=== PATIENT | male | born 1975 | race Hispanic/Latino ===

== ENCOUNTER 2020-01-18 23:48 | Emergency (ER) | payer OTHER ==
[~2020-01-18] VITALS: Ht 180.3 cm; Wt 102.1 kg
[2020-01-19] MEDS ORDERED: ACETAMINOPHEN 325 MG TAB PO ONE (00:15)
[2020-01-19] MEDS ORDERED: SODIUM CHLORIDE 0.9% 1000ML 1,000 ML IV STA (00:36)
[2020-01-19 00:55] LABS: INFLUENZAE A&B ANTIGEN (RAPID) NEGATIVE (NEGATIVE); STREPTOCOCCUS GRP A ANTIGEN NEGATIVE (NEGATIVE)
--- NOTE | 2020-01-19 01:03 | Diagnostic Imaging Report ---
EXAMINATION: PA and lateral views of the chest. COMPARISON: None CLINICAL HISTORY: Cough DISCUSSION: The lungs are well inflated. No focal airspace consolidation, pleural effusion, or pneumothorax. Calcified granuloma in the left midlung. Heart size is normal. Atherosclerotic calcification of the thoracic aorta. Convexity of the left paraspinal region of the mediastinum likely represents a hiatal hernia. No acute osseous abnormalities. IMPRESSION: No acute cardiopulmonary abnormalities. Left paraspinal mediastinal convexity likely represents a hiatal hernia. In the absence of prior radiographs for comparison, outpatient fluoroscopic upper GI series or short-term follow-up chest radiograph may be obtained. Signed by: Dr. John Reece M.D. on 01/19/2020 1:00 AM
[2020-01-19 01:53] LABS: BASOPHILS % 0.4 % (0.0-1.0); EOSINOPHILS # (AUTO) 0.2 (0.0-0.4); EOSINOPHILS % 2.1 % (0.0-6.0); HEMATOCRIT 44.4 % (38.2-49.6); HEMOGLOBIN 15.3 g/dL (14.0-18.0); LYMPHOCYTES # (AUTO) 0.6 (1.0-3.2); LYMPHOCYTES % 6.1 % (18.0-39.1); MEAN CORPUSCULAR HGB CONC 34.5 g/dL (31-35); MEAN CORPUSCULAR VOLUME 92.9 fL (81-99); MONOCYTES % 9.6 % (4.4-11.3); NEUTROPHILS # (AUTO) 8.3 (2.1-6.9); NEUTROPHILS % 81.3 % (38.7-80.0); PLATELET COUNT 232 x10e3/uL (140-360); RED BLOOD COUNT 4.78 x10e6/uL (4.3-5.7); RED CELL DISTRIBUTION WIDTH 12.7 % (11.7-14.4)
[2020-01-19 02:04] LABS: BILIRUBIN,URINE NEGATIVE (NEGATIVE); CLARITY,URINE CLEAR (CLEAR); COLOR,URINE YELLOW (YELLOW); KETONES,URINE NEGATIVE (NEGATIVE); LEUKOCYTE ESTERASE ,URINE NEGATIVE (NEGATIVE); NITRITE,URINE NEGATIVE (NEGATIVE); PROTEIN,URINE DIPSTICK NEGATIVE (NEGATIVE); URINE UROBILINOGEN 0.2 mg/dL (0.2 - 1)
[2020-01-19 02:14] LABS: ALANINE AMINOTRANSFERASE 99 IU/L (0-55); ALBUMIN/GLOBULIN RATIO 1.2 (0.8-2.0); ALKALINE PHOSPHATASE 75 IU/L (40-150); ANION GAP 13.7 mmol/L (8-16); BLOOD UREA NITROGEN 10 mg/dL (7-26); BUN/CREATININE RATIO 11 (6-25); CALCIUM 8.9 mg/dL (8.4-10.2); CARBON DIOXIDE 23 mmol/L (22-29); CHLORIDE 100 mmol/L (98-107); CREATININE, SERUM 0.87 mg/dL (0.72-1.25); EST GLOMERULAR FILTRATION RATE > 60 ML/MIN (60-); GLUCOSE 110 mg/dL (74-118); POTASSIUM 3.7 mmol/L (3.5-5.1); SODIUM 133 mmol/L (136-145)
[2020-01-19 02:14] LABS: BACTERIA,URINE RARE /HPF; EPITHELIAL CELLS,URINE FEW /LPF; RBC,URINE 0-5 /HPF (0-5); WBC,URINE (MAN) 0-5 /HPF (0-5)
[2020-01-19 02:52] VITALS: BP 160/106
== END 2020-01-19 02:56 | disposition home or self-care (01) ==
LOC: ER 23:48
DX: R50.9 Fever, unspecified (principal); R05 Cough; B34.9 Viral infection, unspecified
CPT/HCPCS: 36415; 71046; 80053; 81001; 83518; 83605; 85025; 87070; 87400; 99284; J7030

== ENCOUNTER 2024-05-24 17:46 | Emergency (ER) | payer OTHER ==
[~2024-05-24] VITALS: Ht 180.3 cm; Wt 102.1 kg
[2024-05-24 18:32] LABS: BASOPHILS # (AUTO) 0.1 (0.0-0.1); BASOPHILS % 0.6 % (0.0-1.0); EOSINOPHILS # (AUTO) 0.4 (0.0-0.4); EOSINOPHILS % 3.5 % (0.0-6.0); HEMATOCRIT 44.2 % (38.2-49.6); HEMOGLOBIN 15.4 g/dL (14.0-18.0); LYMPHOCYTES % 18.8 % (18.0-39.1); MEAN CORPUSCULAR HEMOGLOBIN 32.2 pg (28-32); MEAN CORPUSCULAR HGB CONC 34.8 g/dL (31-35); MEAN CORPUSCULAR VOLUME 92.5 fL (81-99); MONOCYTES % 9.7 % (4.4-11.3); NEUTROPHILS # (AUTO) 7.2 (2.1-6.9); NEUTROPHILS % 67.1 % (38.7-80.0); PLATELET COUNT 268 x10e3/uL (140-360); RED BLOOD COUNT 4.78 x10e6/uL (4.3-5.7); WHITE BLOOD COUNT 10.74 x10e3/uL (4.8-10.8)
[2024-05-24 18:49] LABS: ALANINE AMINOTRANSFERASE 28 IU/L (0-55); ALBUMIN 3.7 g/dL (3.5-5.0); ALKALINE PHOSPHATASE 75 IU/L (40-150); ANION GAP 13.5 mmol/L (8-16); BILIRUBIN,TOTAL 0.8 mg/dL (0.2-1.2); BLOOD UREA NITROGEN 9 mg/dL (7-26); BUN/CREATININE RATIO 8 (6-25); CALCIUM 9.2 mg/dL (8.4-10.2); CARBON DIOXIDE 24 mmol/L (22-29); CHLORIDE 103 mmol/L (98-107); CREATINE KINASE 114 IU/L (30-200); CREATININE, SERUM 1.08 mg/dL (0.72-1.25); EST GLOMERULAR FILTRATION RATE 85 ML/MIN (>=60); GLUCOSE 135 mg/dL (74-118); POTASSIUM 3.5 mmol/L (3.5-5.1); SODIUM 137 mmol/L (136-145); TOTAL PROTEIN 7.4 g/dL (6.5-8.1)
[2024-05-24 18:57] LABS: TROPONIN I < 0.001 ng/mL (0-0.300)
[2024-05-24 19:08] VITALS: PULSE 83; RESP 19; TEMP 98.3
[2024-05-24] MEDS: SODIUM CHLORIDE 0.9% 1000ML 1,000 ML IV STA (19:13)
[2024-05-24] MEDS: HYDRALAZINE HCL 20 MG/ML VIAL IV STA (20:52)
[2024-05-24 21:22] VITALS: BP 158/97; PULSE 85; RESP 19; TEMP 98.5; O2SAT 98
== END 2024-05-24 21:29 | disposition home or self-care (01) ==
LOC: ER 18:02
DX: I16.0 Hypertensive urgency (principal); Z91.148 Patient's other noncompliance with medication regimen for other reason; R51.9 Headache, unspecified; K44.9 Diaphragmatic hernia without obstruction or gangrene; R06.02 Shortness of breath; Z11.52 Encounter for screening for COVID-19
CPT/HCPCS: 36415; 70450; 71045; 80053; 82550; 83690; 83880; 84484; 85025; 93005; 99284; J0360; J7030; U0002

== ENCOUNTER 2024-05-25 01:19 | Emergency (ER) | payer OTHER ==
[~2024-05-25] VITALS: Ht 180.3 cm; Wt 116.1 kg
[2024-05-25] MEDS: ASPIRIN 325 MG TAB PO STA (02:04)
[2024-05-25 02:07] VITALS: PULSE 82; RESP 19; TEMP 98.5
[2024-05-25 02:17] LABS: CREATINE KINASE 102 IU/L (30-200)
[2024-05-25 02:23] LABS: TROPONIN I < 0.001 ng/mL (0-0.300)
[2024-05-25] MEDS ORDERED: IOPAMIDOL 370 MG/ML 100 ML INFUS..BTL INJ ONE (02:49)
[2024-05-25] MEDS: FAMOTIDINE 20 MG/2 ML VIAL IV STA (03:06)
[2024-05-25] MEDS ORDERED: FAMOTIDINE 20 MG/2 ML VIAL IV ONE (03:08)
[2024-05-25 04:19] VITALS: BP 167/105; PULSE 69; RESP 17; TEMP 98; O2SAT 100
== END 2024-05-25 04:22 | disposition home or self-care (01) ==
LOC: ER 01:22
DX: R07.9 Chest pain, unspecified (principal); I10 Essential (primary) hypertension
CPT/HCPCS: 36415; 71260; 82550; 84484; 93005; 99284; Q9967

== ENCOUNTER 2025-07-11 20:14 | Observation (INO) | payer OTHER ==
[~2025-07-11] VITALS: Ht 180.3 cm; Wt 104.3 kg
[2025-07-11 20:32] LABS: BASOPHILS % 0.5 % (0.0-1.0); EOSINOPHILS % 3.8 % (0.0-6.0); LYMPHOCYTES % 17.1 % (18.0-39.1); MONOCYTES % 8.0 % (4.4-11.3); NEUTROPHILS % 70.1 % (38.7-80.0); RED CELL DISTRIBUTION WIDTH 13.5 % (11.7-14.4)
[2025-07-11 20:55] LABS: EST GLOMERULAR FILTRATION RATE 87.0 ML/MIN (>=60)
[2025-07-11 22:15] VITALS: PULSE 90; RESP 20; O2SAT 98
[2025-07-11] MEDS ORDERED: Morphine 4mg INJECTION 4 MG/ML INJ IV PRN (22:15)
[2025-07-11] MEDS ORDERED: ONDANSETRON HCL INJ 2MG/ML 2ML 2 MG/ML VIAL IV PRN (22:15)
[2025-07-11 22:22] VITALS: PULSE 91; RESP 18; TEMP 98.3
[2025-07-11] MEDS: ASPIRIN 325 MG TAB PO ONE (22:22)
[2025-07-11] MEDS: CLOPIDOGREL BISULFATE 75 MG TAB PO ONE (22:22)
[2025-07-11 22:50] VITALS: BP 175/107; PULSE 80; RESP 20; TEMP 98.5; O2SAT 100
[2025-07-11] MEDS ORDERED: AMLODIPINE BESYL5 MG PO (23:42)
[2025-07-11] MEDS ORDERED: TRIAMTERENE-HCTZ1 EA PO (23:42)
[2025-07-11] MEDS ORDERED: METFORMIN HCL500 MG PO (23:42)
[2025-07-12] VITALS (8 sets, daily range): BP systolic 134–175; BP diastolic 82–107; PULSE 66–98; RESP 17–22; TEMP 96.8–98.5; O2SAT 95–100
[2025-07-12] MEDS: HYDRALAZINE HCL 20 MG/ML VIAL IV PRN (00:01)
[2025-07-12 06:37] LABS: CHOL/HDL RATIO 3.3 (3.9-4.7); LDL CHOLESTEROL 64.0 MG/DL (60-130)
[2025-07-12] MEDS: ASPIRIN 325 MG TAB PO SCH (08:48)
[2025-07-12] MEDS: CLOPIDOGREL BISULFATE 75 MG TAB PO SCH (08:50)
[2025-07-12] MEDS ORDERED: SODIUM CHLORIDE 0.9% 1000ML 1,000 ML IV SCH (09:00)
[2025-07-12] MEDS: SODIUM CHLORIDE 0.9% 1000ML 1,000 ML IV SCH (09:15)
[2025-07-12] MEDS ORDERED: SIMETHICONE 80 MG CHEW PO PRN (09:45)
[2025-07-12] MEDS ORDERED: ONDANSETRON HCL INJ 2MG/ML 2ML 2 MG/ML VIAL IV PRN (09:45)
[2025-07-12] MEDS ORDERED: DEXTROSE 50% SYRINGE 50 ML IV PRN (09:45)
[2025-07-12] MEDS ORDERED: HYDRALAZINE HCL 20 MG/ML VIAL IV PRN (09:45)
[2025-07-12] MEDS ORDERED: ALBUTEROL/IPRATROPIUM 3 ML NEB NEB PRN (09:45)
[2025-07-12] MEDS ORDERED: MELATONIN 5 MG TABLET PO PRN (09:45)
[2025-07-12] MEDS ORDERED: LIDOCAINE 4% PATCH TP PRN (09:45)
[2025-07-12] MEDS ORDERED: DIPHENHYDRAMINE HCL 25 MG CAP PO PRN (09:45)
[2025-07-12] MEDS ORDERED: DOCUSATE SODIUM 100 MG CAP PO PRN (09:45)
[2025-07-12] MEDS ORDERED: POTASSIUM CHLORIDE 20 MEQ TAB CR PO PRN (09:45)
[2025-07-12] MEDS: LOSARTAN POTASSIUM 25 MG TAB PO SCH (10:50)
[2025-07-12] MEDS: METOPROLOL SUCCINATE 25 MG TAB XL PO SCH (10:51)
[2025-07-12] MEDS: AMLODIPINE BESYLATE 5 MG TAB PO SCH (10:58)
[2025-07-12] MEDS ORDERED: HEPARIN SOD (PORCINE) 1000 UNIT/ML 30ML ONE (12:40)
[2025-07-12] MEDS ORDERED: VERAPAMIL HCL 2.5 MG/ML 2 ML VIAL ONE (12:41)
[2025-07-12] MEDS ORDERED: FENTANYL CITRATE/PF 100MCG/2 ML INJ ONE (12:41)
[2025-07-12] MEDS ORDERED: MIDAZOLAM HCL 2 MG/2 ML VIAL ONE ×2 (12:41→13:17)
[2025-07-12] MEDS ORDERED: NITROGLYCERIN/D5W 200 MCG/ML 250 ML ONE (12:42)
[2025-07-12] MEDS ORDERED: HEPARIN SOD/SOD CHLORIDE 2,000 ML ONE (12:42)
[2025-07-12] MEDS ORDERED: LIDOCAINE HCL 2% LOCAL 20 ML VIAL ONE (12:42)
[2025-07-12] MEDS ORDERED: SODIUM CHLORIDE 0.9% 1000ML 1,000 ML ONE (12:42)
[2025-07-12] MEDS ORDERED: IOPAMIDOL 370 MG/ML 100 ML INFUS..BTL INJ ONE (12:42)
[2025-07-12] MEDS ORDERED: BIVALRIUDIN 250 MG/VIAL VIAL IV ONE (12:43)
[2025-07-12] MEDS ORDERED: SODIUM CHLORIDE 0.9% 100 ML ONE (12:44)
[2025-07-12] MEDS: ENOXAPARIN SOD INJ 40 MG/0.4 ML SYR SC SCH (16:29)
[2025-07-12] MEDS ORDERED: ATORVASTATIN 40 MG TAB PO SCH (21:00)
[2025-07-13] MEDS ORDERED: PANTOPRAZOLE SOD 40 MG TABEC PO SCH (07:30)
== END 2025-07-12 18:24 | disposition home or self-care (01) ==
LOC: ER 20:27 → ERHOLD 22:01 → MED/SURG3 23:16
PROVIDERS: ADMIT Internal Medicine; ATTEND Internal Medicine
DX: R07.89 Other chest pain (principal); I10 Essential (primary) hypertension; E11.9 Type 2 diabetes mellitus without complications; Z79.84 Long term (current) use of oral hypoglycemic drugs; E78.5 Hyperlipidemia, unspecified; Z72.0 Tobacco use; Z82.49 Family history of ischemic heart disease and other diseases of the circulatory system
CPT/HCPCS: 36415 ×2; 71045; 76937; 80053; 80061; 82550; 82948 ×2; 84484 ×2; 85025; 93005; 93306; 93458; 94799 ×2; 99284; C1760; C1766; C1769; C1887; C1894; G0378 ×2; J0360 ×2; J0583; J1644; J1650; J2003; J2250; J3010; J7030; J7050; Q9967; 99152; 99153